=== PATIENT | female | born 1990 | race Caucasian/White ===

== ENCOUNTER 2019-06-03 06:41 | Inpatient (IN) | payer BC ==
[~2019-06-03 06:41] MED LIST: Bupivacaine 0.25% 10 ML SDV ONE
[2019-06-03] MEDS ORDERED: Nalbuphine 10 MG/1 ML Vial IVPUSH PRN (07:23)
[2019-06-03] MEDS ORDERED: Ondansetron 4 MG/2 ML SDV IVPUSH PRN (07:23)
[2019-06-03] MEDS ORDERED: Sodium Chloride 0.9% 10 ML Syringe FLUSH PRN (07:23)
[2019-06-03] MEDS ORDERED: Oxytocin/Lactated Ringers 10 UNIT/1,000 ML BAG IV SCH ×3 (07:30→23:21)
[2019-06-03] MEDS: Lactated Ringers 1,000 ML IV SCH ×5 (07:51→20:29)
--- NOTE | 2019-06-03 08:03 | PCM.LDHP ---
L&D History of Present Illness - General Date of Service: 06/03/19 Admit Problem/Dx: Patient Status Order with Admit Dx/Problem 06/03/19 07:24 Patient Status [ADT] Routine Admission Diagnosis/Problem Admission Diagnosis/Problem Source of Information: Patient - History of Present Illness Introduction:: Jocelyn Winkler is a 29-year-old 002 at 39 weeks 1 days by 7 week ultrasound (ADE 06/09/2019) who presents for elective induction of labor. She denies any contractions or cramping since her last appointment. Denies any leaking of fluid or vaginal bleeding. Reports good movement. Reports that she has had continued headaches but they have been able to be controlled with medication. Present Illness Comments:: Jocelyn Winkler is a 29-year-old 002 at 39 weeks 1 days by 7 week ultrasound (ADE 06/09/2019) who presents for elective induction of labor. She has had an overall uncomplicated and has had routine care with myself starting at 7 weeks gestational age. She had the TDaP vaccine on . She got the flu vaccine on 05/27/2019. Her is complicated by: * Rh- status in and received RhoGAM at 28 weeks gestational age * Back pain in * Family history of congenital heart disease and has been seen by Dr. Woodruff and had normal echocardiogram * Headaches in * Obesity labs Blood type: O- Antibody screen: Negative First trimester hematocrit/hemoglobin: 39.5%/13.2 on 10/24/2018 Platelets: 266 on 10/16/2018 Urine culture: Mixed sergio suggestive of contamination Rubella status: Immune Hepatitis B surface antigen: Negative RPR: Negative HIV: Negative Gonorrhea: Negative Chlamydia: Negative Anatomy ultrasound: Normal anatomy ultrasound with small echogenic focus in the heart, posterior placenta, EFW at 69th percentile One hour glucose tolerance test: 110 Second trimester hematocrit/hemoglobin: 36.8%/12.1 on 03/18/2019 Platelets: 243 on 03/18/2019 GBS status: Negative Genetic testing: Negative NIP screening - Related Data Allergies/Adverse Reactions: Allergies Allergy/AdvReac Type Severity Reaction Status Date / Time latex Allergy Rash Verified 04/30/19 17:47 pineapple Allergy Rash Verified 03/20/15 01:32 shrimp Allergy Rash Verified 03/20/15 01:32 Home Medications: Home Meds PNV95/Ferrous Fumarate/FA [ Multivitamins] 1 tab PO DAILY 10/03/14 [ History] Past Medical History Genitourinary History: Reports: UTI, 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 - Past Surgical History HEENT Surgical History: Reports: Myringotomy w Tube(s) Social & Family History - Tobacco Use Smoking Status *Q: Never Smoker Tobacco Use Within Last Twelve Months: No - Tobacco Core Measures Tobacco Use/Smoking Within Last 30 Days: No Smokeless Tobacco Use in Last 30 Days: No - Alcohol Use Alcohol Use History: No - Recreational Drug Use Recreational Drug Use: No Drug Use in Last 12 Months: No - Living Situation & Occupation Living situation: Reports: , with Significant Other Occupation: Employed H&P Review of Systems - Review of Systems: Review Of Systems: See Below General: Denies: Fever, Chills HEENT: Reports: Headaches. Denies: Rhinitis, Post Nasal Drip, Sinus Congestion , Sore Throat, Visual Changes Pulmonary: Denies: Shortness of Breath, Wheezing, Cough Cardiovascular: Denies: Chest Pain, Palpitations, Dyspnea on Exertion, Orthopnea Gastrointestinal: Denies: Abdominal Pain, Constipation, Diarrhea, Nausea, Vomiting Genitourinary: Denies: Dysuria, Frequency, Burning, Pain, Urgency Musculoskeletal: Reports: Back Pain Skin: Denies: Rash, Lesions Psychiatric: Denies: Depression, Anxiety Neurological: Reports: Headache Hematologic/Lymphatic: Denies: Anemia, Easy Bleeding, Easy Bruising L&D Exam - Exam Exam: See Below - OB Specific Contraction Intensity: Irritability Movement: Active Heart Tones: Present Heart Tones per Min: 125 (+15 x 15 accelerations, no decelerations) Heart Rate (FHR) Variability: Moderate (6-25 bmp) Presentation: Vertex Estimated Weight: 7-7.5 pounds by Alin maneuver - Che Score Che Score Cervix Position: Midposition Che Score Effacement: 31-50% (50%) Che Score Dilation: 1-2 cm (1 cm) Che Score 's Station: -3 - Exam General: Alert, Oriented HEENT: Conjunctiva Clear, EOMI Neck: Supple, Trachea Midline Lungs: Clear to Auscultation, Normal Respiratory Effort Cardiovascular: Regular Rate, Regular Rhythm GI/Abdominal Exam: Soft, Non-Tender, No Distention, Other (gravid). No: Guarding, Rigid, Rebound Genitourinary: Normal external exam Skin: Warm, Dry, Intact Psychiatric: Alert, Normal Affect, Normal Mood - Problem List (1) 39 weeks gestation of SNOMED Code(s): 97516164 ICD Code: Z3A.39 - 39 WEEKS GESTATION OF Status: Acute Current Visit: Yes (2) Rh negative state in antepartum period SNOMED Code(s): 055710678 ICD Code: O26.899 - OTH RELATED CONDITIONS, UNSPECIFIED TRIMESTER; Z67.91 - UNSPECIFIED BLOOD TYPE, RH NEGATIVE Status: Acute Current Visit: Yes (3) PCOS (polycystic ovarian syndrome) SNOMED Code(s): 247677409 ICD Code: E28.2 - POLYCYSTIC OVARIAN SYNDROME Status: Acute Current Visit : Yes Problem List Initiated/Reviewed/Updated: Yes Orders Last 24hrs: Active Orders 24 hr Category Date Time Status Patient Status [ADT] Routine ADT 06/03/19 07:24 Active Activity as Tolerated [RC] PFP Care 06/03/19 07:24 Active Communication Order [RC] ASDIRECTED Care 06/03/19 07:24 Active Heart Tones [RC] ASDIRECTED Care 06/03/19 07:24 Active Non Stress Test [RC] PER UNIT ROUTINE Care 06/03/19 07:24 Active Notify Provider [RC] PFP Care 06/03/19 07:24 Active Notify Provider [RC] PRN Care 06/03/19 07:24 Active Peripheral IV Care [RC] . DIRECTED Care 06/03/19 07:24 Active Vital Signs [RC] PER UNIT ROUTINE Care 06/03/19 07:24 Active Regular Diet [DIET] Diet 06/03/19 Breakfast Active CBC WITH AUTO DIFF [HEME] Stat Lab 06/03/19 07:23 Ordered RAPID PLASMA REAGIN,RPR [CHEM] Routine Lab 06/03/19 07:24 Ordered Lactated Ringers [Ringers, Lactated] 1,000 ml Med 06/03/19 07:30 Active IV ASDIRECTED Nalbuphine [Nubain] Med 06/03/19 07:23 Active 10 mg IVPUSH Q2H PRN Ondansetron [Zofran] Med 06/03/19 07:23 Active 4 mg IVPUSH Q4H PRN Oxytocin/Lactated Ringers [Pitocin in LR 10 Units/1,000 Med 06/03/19 07:30 Active ML] 10 unit in 1,000 ml IV .CONTINUOUS Oxytocin/Lactated Ringers [Pitocin in LR 10 Units/1,000 Med 06/03/19 07:30 Active ML] 10 unit in 1,000 ml IV TITRATE Sodium Chloride 0.9% [Saline Flush] Med 06/03/19 07:23 Active 10 ml FLUSH ASDIRECTED PRN Electronic Heart Tones Ext w TOCO [WOMSER] Oth 06/03/19 07:24 Ordered Routine Electronic Heart Tones Internal [WOMSER] Per Unit Oth 06/03/19 07:24 Ordered Routine Peripheral IV Insertion Adult [OM.PC] Routine Oth 06/03/19 07:24 Ordered Resuscitation Status Routine Resus Stat 06/03/19 07:23 Ordered Medication Orders Lactated Ringer's (Ringers, Lactated) 1,000 mls @ 100 mls/hr IV ASDIRECTED SHERYL Last Admin: 06/03/19 07:51 Dose: 100 mls/hr Oxytocin/Lactated Ringer's (Pitocin In Lr 10 Units/1,000 Ml) 10 unit in 1,000 mls @ 100 mls/hr IV .CONTINUOUS SHERYL Oxytocin/Lactated Ringer's (Pitocin In Lr 10 Units/1,000 Ml) 10 unit in 1,000 mls @ 12 mls/hr IV TITRATE SHERYL; Protocol Last Admin: 06/03/19 07:54 Dose: 2 munits/min, 12 mls/hr Nalbuphine HCl (Nubain) 10 mg IVPUSH Q2H PRN PRN Reason: Pain Ondansetron HCl (Zofran) 4 mg IVPUSH Q4H PRN PRN Reason: Nausea/Vomiting Sodium Chloride (Saline Flush) 10 ml FLUSH ASDIRECTED PRN PRN Reason: Keep Vein Open Assessment/Plan Comment:: Refer to observation for elective induction of labor Start Pitocin for induction of labor Continuous monitoring Place IV and have Lactated Ringer's at 125 ml/hr May have small amounts of regular diet Activity as tolerated May have epidural as desired Plans to breast-feed after delivery Anticipate vaginal delivery unless otherwise indicated Yeyo Montano M.D. 8:11 AM 06/03/2019
[2019-06-03] MEDS ORDERED: ePHEDrine 50 MG/ML SDV IVPUSH PRN (10:26)
[2019-06-03] MEDS ORDERED: fentaNYL 100 MCG/2 ML SDV EPIDUR PRN (10:26)
[2019-06-03] MEDS ORDERED: fentaNYL/Bupivacaine in NS PF 2 MCG-0.125% 250 ML Premix EPIDUR PRN (10:26)
[2019-06-03] MEDS ORDERED: diphenhydrAMINE 50 MG/ML SDV IVPUSH PRN (10:26)
--- NOTE | 2019-06-03 11:33 | PCM.PNLD ---
Labor Progress Note - VS & Meds Vital Signs: Last Vital Signs Temp 36.3 C 06/03/19 07:24 Pulse 106 H 06/03/19 07:24 Resp 18 06/03/19 07:24 BP 132/87 06/03/19 07:24 Pulse Ox 97 06/03/19 07:24 Active Medications: Current Medications Diphenhydramine HCl (Benadryl) 25 mg IVPUSH Q6H PRN PRN Reason: pruritis Ephedrine Sulfate (Ephedrine Sulfate) 5 mg IVPUSH ASDIRECTED PRN PRN Reason: Hypotension Fentanyl (Sublimaze) 100 mcg EPIDUR Q3H PRN PRN Reason: Pain Fentanyl/Bupivacaine HCl (Fentanyl/Bupivacaine/Ns 2 Mcg-0.125% 250 Ml) 2 mcg EPIDUR CONTINUOUS PRN PRN Reason: Pain Lactated Ringer's (Ringers, Lactated) 1,000 mls @ 100 mls/hr IV ASDIRECTED SHERYL Last Admin: 06/03/19 07:51 Dose: 100 mls/hr Oxytocin/Lactated Ringer's (Pitocin In Lr 10 Units/1,000 Ml) 10 unit in 1,000 mls @ 100 mls/hr IV .CONTINUOUS SHERYL Oxytocin/Lactated Ringer's (Pitocin In Lr 10 Units/1,000 Ml) 10 unit in 1,000 mls @ 12 mls/hr IV TITRATE SHERYL; Protocol Last Titration: 06/03/19 11:04 Dose: 12 munits/min, 72 mls/hr Nalbuphine HCl (Nubain) 10 mg IVPUSH Q2H PRN PRN Reason: Pain Ondansetron HCl (Zofran) 4 mg IVPUSH Q4H PRN PRN Reason: Nausea/Vomiting Sodium Chloride (Saline Flush) 10 ml FLUSH ASDIRECTED PRN PRN Reason: Keep Vein Open - Uterine Contractions Uterine Monitoring Mode: External [place] Contraction Frequency (min): 2-3 Contraction Duration (sec): 60-75 Contraction Intensity: Moderate to Strong Uterine Resting Tone: Soft - Monitoring Monitor Mode: Doppler/Auscultation Heart Rate (FHR) Baseline: 130 Heart Rate (FHR) Variability: Moderate (6-25 bmp) Accelerations: Present, 15x15 Decelerations: Late, Intermittent (<50% x 20 min) Strip Review: Category II - Vaginal Exam Dilation (cm): 2 Effacement (Percent): 70 Station: -2 Cervical Position: Anterior Sterile Vaginal Exam Performed By: Yeyo Montano Vaginal Exam Comment: Artificial rupture membranes with [place] performed without difficulty with return of clear fluid. Mother and infant tolerated procedure without difficulty. - Labor Progress (Free Text) Labor Progress: Patient with good progress since induction this morning with Pitocin. Continue Pitocin for induction of labor Continue to increase Pitocin as tolerated by mother and infant Continue monitoring Epidural as desired per patient Anticipate vaginal delivery unless otherwise indicated. Yeyo Montano M.D. 11:33 AM 06/03/2019
--- NOTE | 2019-06-03 15:24 | PCM.PREANE ---
Preanesthetic Assessment - Anesthesia/Transfusion/Family Hx Anesthesia History: Prior Anesthesia Without Reaction Family History of Anesthesia Reaction: No Transfusion History: No Prior Transfusion(s) Type of Transfusion Reactions: Reports: Unknown - Review of Systems General: No Symptoms Pulmonary: No Symptoms Cardiovascular: No Symptoms Gastrointestinal: Other ([place] Burn) Neurological: Headache (Chronic Headache. ) Other: Reports: None (Obesity) - Physical Assessment Vital Signs: Last Vital Signs Temp 36.3 C 06/03/19 07:24 Pulse 106 H 06/03/19 07:24 Resp 18 06/03/19 07:24 BP 132/87 06/03/19 07:24 Pulse Ox 97 06/03/19 07:24 Height: 1.6 m Weight: 101.423 kg ASA Class: 2 Mental Status: Alert & Oriented x3 Airway Class: Mallampati = 2 Dentition: Reports: Normal Dentition Thyro-Mental Finger Breadths: 3 Mouth Opening Finger Breadths: 3 ROM/Head Extension: Full Lungs: Clear to Auscultation, Normal Respiratory Effort - Lab Values: Laboratory Last Values WBC 9.12 K/mm3 (3.98-10.04) 06/03/19 07:55 RBC 3.99 M/mm3 (3.98-5.22) 06/03/19 07:55 Hgb 11.5 gm/dl (11.2-15.7) 06/03/19 07:55 Hct 33.5 % (34.1-44.9) L 06/03/19 07:55 MCV 84.0 fl (79.4-94.8) D 06/03/19 07:55 MCH 28.8 pg (25.6-32.2) 06/03/19 07:55 MCHC 34.3 g/dl (32.2-35.5) 06/03/19 07:55 RDW Std Deviation 44.4 fL (36.4-46.3) 06/03/19 07:55 Plt Count 230 K/mm3 (182-369) 06/03/19 07:55 MPV 10.8 fl (9.4-12.3) 06/03/19 07:55 Neut % (Auto) 65.1 % (34.0-71.1) 06/03/19 07:55 Lymph % (Auto) 23.4 % (19.3-51.7) 06/03/19 07:55 [place] % (Auto) 9.0 % (4.7-12.5) 06/03/19 07:55 Eos % (Auto) 2.2 (0.7-5.8) 06/03/19 07:55 Baso % (Auto) 0.3 % (0.1-1.2) 06/03/19 07:55 Neut # (Auto) 5.94 K/mm3 (1.56-6.13) 06/03/19 07:55 Lymph # (Auto) 2.13 K/mm3 (1.18-3.74) 06/03/19 07:55 [place] # (Auto) 0.82 K/mm3 (0.24-0.36) H 06/03/19 07:55 Eos # (Auto) 0.20 K/mm3 (0.04-0.36) 06/03/19 07:55 Baso # (Auto) 0.03 K/mm3 (0.01-0.08) 06/03/19 07:55 - Allergies Allergies/Adverse Reactions: Allergies Allergy/AdvReac Type Severity Reaction Status Date / Time latex Allergy Rash Verified 04/30/19 17:47 pineapple Allergy Rash Verified 03/20/15 01:32 shrimp Allergy Rash Verified 03/20/15 01:32 - Acknowledgements Anesthesia Type Planned: Epidural Pt an Appropriate Candidate for the Planned Anesthesia: Yes Alternatives and Risks of Anesthesia Discussed w Pt/Guardian: Yes Pt/Guardian Understands and Agrees with Anesthesia Plan: Yes PreAnesthesia Questionnaire HEENT History: Reports: Otitis Media Genitourinary History: Reports: UTI, 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 - Past Surgical History HEENT Surgical History: Reports: Myringotomy w Tube(s) - SUBSTANCE USE Smoking Status *Q: Never Smoker Tobacco Use Within Last Twelve Months: No Second Hand Smoke Exposure: No Recreational Drug Use History: No - HOME MEDS Home Medications: Home Meds PNV95/Ferrous Fumarate/FA [ Multivitamins] 1 tab PO DAILY 10/03/14 [ History] - CURRENT (IN HOUSE) MEDS Current Meds: Current Medications Diphenhydramine HCl (Benadryl) 25 mg IVPUSH Q6H PRN PRN Reason: pruritis Ephedrine Sulfate (Ephedrine Sulfate) 5 mg IVPUSH ASDIRECTED PRN PRN Reason: Hypotension Fentanyl (Sublimaze) 100 mcg EPIDUR Q3H PRN PRN Reason: Pain Last Admin: 06/03/19 13:20 Dose: 100 mcg Fentanyl/Bupivacaine HCl (Fentanyl/Bupivacaine/Ns 2 Mcg-0.125% 250 Ml) 2 mcg EPIDUR CONTINUOUS PRN PRN Reason: Pain Last Admin: 06/03/19 13:19 Dose: 2 mcg Lactated Ringer's (Ringers, Lactated) 1,000 mls @ 100 mls/hr IV ASDIRECTED SHERYL Last Admin: 06/03/19 14:48 Dose: 100 mls/hr Oxytocin/Lactated Ringer's (Pitocin In Lr 10 Units/1,000 Ml) 10 unit in 1,000 mls @ 100 mls/hr IV .CONTINUOUS SHERYL Oxytocin/Lactated Ringer's (Pitocin In Lr 10 Units/1,000 Ml) 10 unit in 1,000 mls @ 12 mls/hr IV TITRATE SHERYL; Protocol Last Titration: 06/03/19 14:48 Dose: 8 munits/min, 48 mls/hr Nalbuphine HCl (Nubain) 10 mg IVPUSH Q2H PRN PRN Reason: Pain Ondansetron HCl (Zofran) 4 mg IVPUSH Q4H PRN PRN Reason: Nausea/Vomiting Sodium Chloride (Saline Flush) 10 ml FLUSH ASDIRECTED PRN PRN Reason: Keep Vein Open
--- NOTE | 2019-06-03 23:01 | PCM.DEL ---
L & D Note - General Info Date of Service: 06/03/19 Mother's Due Date: 06/09/19 - Delivery Note Labor: Augmented by ARM, Augmented by Oxytocin, Induced by Oxytocin Delivery Outcome: Livebirth Infant Delivery Method: Spontaneous Vaginal Delivery-Single Presentation: Direct occiput posterior Nuchal Cord: None Anesthesia Type: Epidural Episiotomy Type: None Laceration: 1st Degree, Perineal (midline perineal, repaired with 3- Vicryl) Suture type: Vicryl Suture size: 3-0 Placenta: Intact, Spontaneous Cord: 3 Vessels Estimated Blood Loss: 200 Resuscitation Needed: No : Bulb Syringe, Stimulated, Warmed, Century Used Score 1 min: 8 Score 5 min: 9 Second Stage Interventions: Reports: Pushing Effectively, Pushing, Stirrups/Leg Supports Delivery Comments (Free Text/Narrative):: Stage I: Jocelyn Winkler was admitted for elective induction of labor. On admission her cervix was dilated to 1 cm. She was GBS negative. She was started on Pitocin for augmentation of labor. She had artificial rupture membranes with clear fluid. She was given an epidural for anesthesia. She progressed to complete and pushing. Stage II: On 06/03/2019 she had a normal vaginal delivery of a live female infant at 22:13. Apgars of 8 & 9. Weight of 2890 g (6 lbs 5.9 oz). Length of 19.5 inches. There was no nuchal cord. was delivered in direct OP position. The cord was doubly clamped and cut by father of the . was placed on mother's abdomen. Stage III: She had a spontaneous delivery of an intact placenta in Adriana presentation. Three vessel cord. She was given pitocin and fundal massage. She had a first-degree midline perineal laceration that was repaired with 3-0 Vicryl.. Mom and baby were stable to recovery. EBL of 200 mL. Yeyo Montano MD 10:56 PM 06/03/2019 - General Info Date of Service: 06/03/19 - Patient Data Vitals - Most Recent: Last Vital Signs Temp 36.3 C 06/03/19 07:24 Pulse 106 H 06/03/19 07:24 Resp 18 06/03/19 07:24 BP 132/87 06/03/19 07:24 Pulse Ox 97 06/03/19 07:24 Weight - Most Recent: 101.423 kg I&O - Last 24 Hours: Intake & Output 06/03/19 06/03/19 06/03/19 06:59 14:59 22:59 Intake Total 240 Balance 240 Lab Results Last 24 Hours: Laboratory Results - last 24 hr 06/03/19 06/03/19 Range/Units 07:55 07:55 WBC 9.12 (3.98-10.04) K/mm3 RBC 3.99 (3.98-5.22) M/mm3 Hgb 11.5 (11.2-15.7) gm/dl Hct 33.5 L (34.1-44.9) % MCV 84.0 D (79.4-94.8) fl MCH 28.8 (25.6-32.2) pg MCHC 34.3 (32.2-35.5) g/dl RDW Std Deviation 44.4 (36.4-46.3) fL Plt Count 230 (182-369) K/mm3 MPV 10.8 (9.4-12.3) fl Neut % (Auto) 65.1 (34.0-71.1) % Lymph % (Auto) 23.4 (19.3-51.7) % [place] % (Auto) 9.0 (4.7-12.5) % Eos % (Auto) 2.2 (0.7-5.8) Baso % (Auto) 0.3 (0.1-1.2) % Neut # (Auto) 5.94 (1.56-6.13) K/mm3 Lymph # (Auto) 2.13 (1.18-3.74) K/mm3 [place] # (Auto) 0.82 H (0.24-0.36) K/mm3 Eos # (Auto) 0.20 (0.04-0.36) K/mm3 Baso # (Auto) 0.03 (0.01-0.08) K/mm3 RPR Non-reactive (NONREACTIVE) Med Orders - Current: Current Medications Diphenhydramine HCl (Benadryl) 25 mg IVPUSH Q6H PRN PRN Reason: pruritis Last Admin: 06/03/19 20:29 Dose: 25 mg Ephedrine Sulfate (Ephedrine Sulfate) 5 mg IVPUSH ASDIRECTED PRN PRN Reason: Hypotension Fentanyl (Sublimaze) 100 mcg EPIDUR Q3H PRN PRN Reason: Pain Last Admin: 06/03/19 13:20 Dose: 100 mcg Fentanyl/Bupivacaine HCl (Fentanyl/Bupivacaine/Ns 2 Mcg-0.125% 250 Ml) 2 mcg EPIDUR CONTINUOUS PRN PRN Reason: Pain Last Admin: 06/03/19 13:19 Dose: 2 mcg Lactated Ringer's (Ringers, Lactated) 1,000 mls @ 100 mls/hr IV ASDIRECTED SHERYL Last Admin: 06/03/19 20:29 Dose: 100 mls/hr Oxytocin/Lactated Ringer's (Pitocin In Lr 10 Units/1,000 Ml) 10 unit in 1,000 mls @ 100 mls/hr IV .CONTINUOUS SHERYL Last Admin: 06/03/19 22:57 Dose: 100 mls/hr Oxytocin/Lactated Ringer's (Pitocin In Lr 10 Units/1,000 Ml) 10 unit in 1,000 mls @ 12 mls/hr IV TITRATE SHERYL; Protocol Last Titration: 06/03/19 22:15 Dose: 500 mls/hr Nalbuphine HCl (Nubain) 10 mg IVPUSH Q2H PRN PRN Reason: Pain Ondansetron HCl (Zofran) 4 mg IVPUSH Q4H PRN PRN Reason: Nausea/Vomiting Last Admin: 06/03/19 16:43 Dose: 4 mg Sodium Chloride (Saline Flush) 10 ml FLUSH ASDIRECTED PRN PRN Reason: Keep Vein Open - Problem List & Annotations (1) 39 weeks gestation of SNOMED Code(s): 29918484 Code(s): Z3A.39 - 39 WEEKS GESTATION OF Status: Acute Current Visit: Yes (2) Rh negative state in antepartum period SNOMED Code(s): 070948173 Code(s): O26.899 - OTH RELATED CONDITIONS, UNSPECIFIED TRIMESTER; Z67.91 - UNSPECIFIED BLOOD TYPE, RH NEGATIVE Status: Acute Current Visit: Yes (3) PCOS (polycystic ovarian syndrome) SNOMED Code(s): 392204618 Code(s): E28.2 - POLYCYSTIC OVARIAN SYNDROME Status: Acute Current Visit : Yes (4) Vaginal delivery SNOMED Code(s): 273445360 Code(s): O80 - ENCOUNTER FOR FULL-TERM UNCOMPLICATED DELIVERY Status: Acute Current Visit: Yes (5) First degree perineal laceration during delivery SNOMED Code(s): 006836309 Code(s): O70.0 - FIRST DEGREE PERINEAL LACERATION DURING DELIVERY Status: Acute Current Visit: Yes - Problem List Review Problem List Initiated/Reviewed/Updated: Yes - My Orders Last 24 Hours: My Active Orders 06/03/19 07:23 Nalbuphine [Nubain] 10 mg IVPUSH Q2H PRN Ondansetron [Zofran] 4 mg IVPUSH Q4H PRN Sodium Chloride 0.9% [Saline Flush] 10 ml FLUSH ASDIRECTED PRN Resuscitation Status Routine 06/03/19 07:24 Patient Status [ADT] Routine Activity as Tolerated [RC] PFP Communication Order [RC] ASDIRECTED Heart Tones [RC] ASDIRECTED Non Stress Test [RC] PER UNIT ROUTINE Notify Provider [RC] PFP Notify Provider [RC] PRN Peripheral IV Care [RC] . DIRECTED Vital Signs [RC] 03,09,15,21 Electronic Heart Tones Ext w TOCO [WOMSER] Routine Electronic Heart Tones Internal [WOMSER] Per Unit Routine Peripheral IV Insertion Adult [OM.PC] Routine 06/03/19 07:30 Lactated Ringers [Ringers, Lactated] 1,000 ml IV ASDIRECTED Oxytocin/Lactated Ringers [Pitocin in LR 10 Units/1,000 ML] 10 unit in 1,000 ml IV .CONTINUOUS Oxytocin/Lactated Ringers [Pitocin in LR 10 Units/1,000 ML] 10 unit in 1,000 ml IV TITRATE 06/03/19 22:45 Patient Status Manage Transfer [TRANSFER] Routine 06/03/19 Breakfast Regular Diet [DIET] - Plan Plan:: Admit to inpatient following normal spontaneous vaginal delivery Continue Pitocin per unit protocol following delivery of placenta and lactated Ringer's until tolerating regular diet Regular diet Vitals per unit routine Ibuprofen and Tylenol for pain control Assist with breast-feeding as needed Continue to monitor lochia We will follow up on blood type as patient has O- blood type. If is Rh+ patient should be given RhoGAM prior to discharge. Anticipate discharge home on day #2 Yeyo Montano MD 10:56 PM 06/03/2019
[2019-06-03] MEDS ORDERED: Docusate Sodium 100 MG Cap PO PRN (23:21)
[2019-06-03] MEDS ORDERED: Benzocaine/Menthol 20%-0.5% Spray 56 GM Canister TOP PRN (23:21)
[2019-06-03] MEDS ORDERED: Magnesium Hydroxide 400 MG/5 ML Susp 30 ML Cup PO PRN (23:21)
[2019-06-03] MEDS ORDERED: Witch Hazel Medicated Pads 40/Jar TOP PRN (23:21)
[2019-06-03] MEDS ORDERED: Famotidine 20 MG Tab PO PRN (23:21)
[2019-06-03] MEDS ORDERED: Hydrocortisone Acetate 25 MG Supp RECTAL PRN (23:21)
[2019-06-03] MEDS: Ibuprofen 600 MG Tab PO PRN (23:53)
[2019-06-04] MEDS: Ibuprofen 600 MG Tab PO PRN ×3 (06:38→19:45)
--- NOTE | 2019-06-04 08:02 | PCM48HPAN ---
Post Anesthesia Note - EVALUATION WITHIN 48HRS OF ANESTHETIC Vital Signs in Normal Range: Yes Patient Participated in Evaluation: Yes Respiratory Function Stable: Yes Airway Patent: Yes Cardiovascular Function Stable: Yes Hydration Status Stable: Yes Pain Control Satisfactory: Yes Nausea and Vomiting Control Satisfactory: Yes Mental Status Recovered: Yes Vital Signs: Last Vital Signs Temp 97.2 F 06/04/19 03:53 Pulse 92 06/04/19 03:53 Resp 16 06/04/19 03:53 BP 100/53 L 06/04/19 03:53 Pulse Ox 96 06/04/19 03:53
[2019-06-04] MEDS ORDERED: Prenatal Multivitamin with Calcium/Folic Acid/Iron Tab PO SCH (09:00)
--- NOTE | 2019-06-04 09:37 | PCM.SN ---
- Free Text/Narrative Note: Post Progress Note PPD # 1 Subjective: Doing well overall. Ambulating without difficulty. Lochia minimal. Voiding without difficulty. Tolerating regular diet without nausea or vomiting. Pain controlled with oral medications. Breast-feeding with minimal difficulty. Objective: Vitals: Vital Signs - 24 hr 06/04/19 06/04/19 03:53 08:41 Temperature 36.2 C Pulse, 92 92 Peripheral Respiratory 16 14 Rate Blood Pressure 100/53 L 133/71 O2 Sat by Pulse 96 98 Oximetry Physical Exam General: Alert and oriented, no acute distress Lungs: Clear to auscultation bilaterally Heart: Regular rate and rhythm Abdomen: Soft, minimal appropriate tenderness, non-distended, fundus midline, nontender, and at the umbilicus Extremities: Trace edema in bilateral lower extremities to ankles Laboratory Tests 06/03/19 06/03/19 06/04/19 Range/Units 07:55 07:55 07:00 WBC 9.12 (3.98-10.04) K/mm3 RBC 3.99 (3.98-5.22) M/mm3 Hgb 11.5 (11.2-15.7) gm/dl Hct 33.5 L (34.1-44.9) % MCV 84.0 D (79.4-94.8) fl MCH 28.8 (25.6-32.2) pg MCHC 34.3 (32.2-35.5) g/dl RDW Std Deviation 44.4 (36.4-46.3) fL Plt Count 230 (182-369) K/mm3 MPV 10.8 (9.4-12.3) fl Neut % (Auto) 65.1 (34.0-71.1) % Lymph % (Auto) 23.4 (19.3-51.7) % [place] % (Auto) 9.0 (4.7-12.5) % Eos % (Auto) 2.2 (0.7-5.8) Baso % (Auto) 0.3 (0.1-1.2) % Neut # (Auto) 5.94 (1.56-6.13) K/mm3 Lymph # (Auto) 2.13 (1.18-3.74) K/mm3 [place] # (Auto) 0.82 H (0.24-0.36) K/mm3 Eos # (Auto) 0.20 (0.04-0.36) K/mm3 Baso # (Auto) 0.03 (0.01-0.08) K/mm3 RPR Non-reactive (NONREACTIVE) Blood Type O NEGATIVE Gel Antibody Screen Positive Screen 1 ros/5 flds - neg RhIG Candidate? Yes Rhogam Indicated Yes, baby rh pos H ASSESSMENT: 29-year-old female s/p normal vaginal delivery PPD #1, complicated by Rh- status in PLAN: Doing well Breast-feeding with minimal difficulty. Assist as needed Lochia minimal. Continue to monitor for appropriate lochia. Continue routine care Patient with O- blood type and infant with A+ blood type. Patient should receive RhoGAM prior to discharge. Anticipate discharge home tomorrow due to late timing of delivery last evening Yeyo Montano MD 9:35 AM 06/04/2019
[2019-06-04] MEDS: Acetaminophen 325 MG Tab PO PRN ×2 (16:39→23:35)
[2019-06-05] MEDS: Ibuprofen 600 MG Tab PO PRN (05:04)
[2019-06-05 08:32] VITALS: BP 124/79; PULSE 75
--- NOTE | 2019-06-05 09:27 | PCM.SN ---
- Free Text/Narrative Note: Post Progress Note PPD # 2 Subjective: Doing well overall. Ambulating without difficulty. Lochia minimal. Voiding without difficulty. Tolerating regular diet without nausea or vomiting. Reports that she is having some muscle soreness in her right lower abdomen. She has been using a heating pad and that has helped with this pain. Pain controlled with oral medications. Breast-feeding with minimal difficulty. Objective: Vitals: Vital Signs - 24 hr 06/04/19 06/04/19 06/04/19 09:48 09:52 09:53 Temperature 36.5 C 36.5 C 36.6 C Pulse, 78 Peripheral Pulse, 81 86 Peripheral [ Pulse Oximetry] Respiratory 98 H 14 Rate Blood Pressure 121/61 Blood Pressure 121/61 117/61 [Upper Arm] O2 Sat by Pulse 98 98 Oximetry 06/04/19 06/04/19 06/04/19 09:54 14:56 20:16 Temperature 36.6 C Pulse, 89 77 65 Peripheral Pulse, Peripheral [ Pulse Oximetry] Respiratory 14 14 14 Rate Blood Pressure 117/61 130/83 108/64 Blood Pressure [Upper Arm] O2 Sat by Pulse 98 98 99 Oximetry 06/05/19 06/05/19 05:06 08:28 Temperature 36.7 C Pulse, 82 75 Peripheral Pulse, Peripheral [ Pulse Oximetry] Respiratory 16 14 Rate Blood Pressure 133/83 124/79 Blood Pressure [Upper Arm] O2 Sat by Pulse 98 98 Oximetry Physical Exam General: Alert and oriented, no acute distress Lungs: Clear to auscultation bilaterally Heart: Regular rate and rhythm Abdomen: Soft, minimal appropriate tenderness, non-distended, fundus midline, nontender, and 1 fingerbreadth below the umbilicus Extremities: Trace edema in bilateral lower extremities to ankles that is overall unchanged Laboratory Tests 06/03/19 06/03/19 06/04/19 Range/Units 07:55 07:55 07:00 WBC 9.12 (3.98-10.04) K/mm3 RBC 3.99 (3.98-5.22) M/mm3 Hgb 11.5 (11.2-15.7) gm/dl Hct 33.5 L (34.1-44.9) % MCV 84.0 D (79.4-94.8) fl MCH 28.8 (25.6-32.2) pg MCHC 34.3 (32.2-35.5) g/dl RDW Std Deviation 44.4 (36.4-46.3) fL Plt Count 230 (182-369) K/mm3 MPV 10.8 (9.4-12.3) fl Neut % (Auto) 65.1 (34.0-71.1) % Lymph % (Auto) 23.4 (19.3-51.7) % [place] % (Auto) 9.0 (4.7-12.5) % Eos % (Auto) 2.2 (0.7-5.8) Baso % (Auto) 0.3 (0.1-1.2) % Neut # (Auto) 5.94 (1.56-6.13) K/mm3 Lymph # (Auto) 2.13 (1.18-3.74) K/mm3 [place] # (Auto) 0.82 H (0.24-0.36) K/mm3 Eos # (Auto) 0.20 (0.04-0.36) K/mm3 Baso # (Auto) 0.03 (0.01-0.08) K/mm3 RPR Non-reactive (NONREACTIVE) Blood Type O NEGATIVE Gel Antibody Screen Positive Screen 1 ros/5 flds - neg RhIG Candidate? Yes Rhogam Indicated Yes, baby rh pos H ASSESSMENT: 29-year-old female s/p normal vaginal delivery PPD #2, complicated by Rh- status in PLAN: Doing well Breast-feeding with minimal difficulty. Assist as needed Lochia minimal. Continue to monitor for appropriate lochia. Continue routine care Patient with O- blood type and with A+ blood type. Patient given RhoGAM on 06/04/2019 prior to discharge. Discharge home today Yeyo Montano MD 9:24 AM 06/05/2019
--- NOTE | 2019-06-05 09:30 | PCM.DCSUM1 ---
Discharge Summary - Hospital Course Free Text/Narrative:: - Delivery Note Labor: Augmented by ARM, Augmented by Oxytocin, Induced by Oxytocin Delivery Outcome: Livebirth Infant Delivery Method: Spontaneous Vaginal Delivery-Single Presentation: Direct occiput posterior Nuchal Cord: None Anesthesia Type: Epidural Episiotomy Type: None Laceration: 1st Degree, Perineal (midline perineal, repaired with 3- Vicryl) Suture type: Vicryl Suture size: 3-0 Placenta: Intact, Spontaneous Cord: 3 Vessels Estimated Blood Loss: 200 Resuscitation Needed: No : Bulb Syringe, Stimulated, Warmed, [place] Used Score 1 min: 8 Score 5 min: 9 Second Stage Interventions: Reports: Pushing Effectively, Pushing, Stirrups/Leg Supports Delivery Comments (Free Text/Narrative):: Stage I: Jocelyn Winkler was admitted for elective induction of labor. On admission her cervix was dilated to 1 cm. She was GBS negative. She was started on Pitocin for augmentation of labor. She had artificial rupture membranes with clear fluid. She was given an epidural for anesthesia. She progressed to complete and pushing. Stage II: On 06/03/2019 she had a normal vaginal delivery of a live female infant at 22:13. Apgars of 8 & 9. Weight of 2890 g (6 lbs 5.9 oz). Length of 19.5 inches. There was no nuchal cord. Infant was delivered in direct OP position. The cord was doubly clamped and cut by father of the . Infant was placed on mother's abdomen. Stage III: She had a spontaneous delivery of an intact placenta in Adriana presentation. Three vessel cord. She was given pitocin and fundal massage. She had a first-degree midline perineal laceration that was repaired with 3-0 Vicryl.. Mom and baby were stable to recovery. EBL of 200 mL. HPI Initial Comments: - Delivery Note Labor: Augmented by ARM, Augmented by Oxytocin, Induced by Oxytocin Delivery Outcome: Livebirth Delivery Method: Spontaneous Vaginal Delivery-Single Presentation: Direct occiput posterior Nuchal Cord: None Anesthesia Type: Epidural Episiotomy Type: None Laceration: 1st Degree, Perineal (midline perineal, repaired with 3- Vicryl) Suture type: Vicryl Suture size: 3-0 Placenta: Intact, Spontaneous Cord: 3 Vessels Estimated Blood Loss: 200 Resuscitation Needed: No : Bulb Syringe, Stimulated, Warmed, [place] Used Score 1 min: 8 Score 5 min: 9 Second Stage Interventions: Reports: Pushing Effectively, Pushing, Stirrups/Leg Supports Delivery Comments (Free Text/Narrative):: Stage I: Jocelyn Winkler was admitted for elective induction of labor. On admission her cervix was dilated to 1 cm. She was GBS negative. She was started on Pitocin for augmentation of labor. She had artificial rupture membranes with clear fluid. She was given an epidural for anesthesia. She progressed to complete and pushing. Stage II: On 06/03/2019 she had a normal vaginal delivery of a live female at 22:13. Apgars of 8 & 9. Weight of 2890 g (6 lbs 5.9 oz). Length of 19.5 inches. There was no nuchal cord. was delivered in direct OP position. The cord was doubly clamped and cut by father of the infant. Infant was placed on mother's abdomen. Stage III: She had a spontaneous delivery of an intact placenta in Adriana presentation. Three vessel cord. She was given pitocin and fundal massage. She had a first-degree midline perineal laceration that was repaired with 3-0 Vicryl.. Mom and baby were stable to recovery. EBL of 200 mL. Brief History: - Delivery Note. Labor: Augmented by ARM, Augmented by Oxytocin , Induced by Oxytocin. Delivery Outcome: Livebirth. Delivery Method: Spontaneous Vaginal Delivery-Single. Presentation: Direct occiput posterior. Nuchal Cord: None. Anesthesia Type: Epidural. Episiotomy Type: None. Laceration: 1st Degree, Perineal (midline perineal, repaired with 3- Vicryl). Suture type: Vicryl. Suture size: 3-0. Placenta: Intact, Spontaneous. Cord: 3 Vessels. Estimated Blood Loss: 200. Resuscitation Needed : No. : Bulb Syringe, Stimulated, Warmed, [place] Used. Score 1 min: 8. Score 5 min: 9. Second Stage Interventions: Reports: Pushing Effectively, Pushing, Stirrups/Leg Supports. Delivery Comments (Free Text/ Narrative):: Stage I: Jocelyn Winkler was admitted for elective induction of labor. On admission her cervix was dilated to 1 cm. She was GBS negative. She was started on Pitocin for augmentation of labor. She had artificial rupture membranes with clear fluid. She was given an epidural for anesthesia. She progressed to complete and pushing. Stage II: On 06/03/2019 she had a normal vaginal delivery of a live female at 22:13. Apgars of 8 & 9. Weight of 2890 g (6 lbs 5.9 oz). Length of 19.5 inches. There was no nuchal cord. was delivered in direct OP position. The cord was doubly clamped and cut by father of the . Infant was placed on mother's abdomen. Stage III: She had a spontaneous delivery of an intact placenta in Adriana presentation. Three vessel cord. She was given pitocin and fundal massage. She had a first-degree midline perineal laceration that was repaired with 3-0 Vicryl.. Mom and baby were stable to recovery. EBL of 200 mL. Diagnosis: Stroke: No - Discharge Data Discharge Date: 06/05/19 Discharge Disposition: Home, Self-Care 01 Condition: Good - Referral to Home Health Primary Care Physician: Yeyo Montano MD - Discharge Diagnosis/Problem(s) (1) 39 weeks gestation of SNOMED Code(s): 80309906 ICD Code: Z3A.39 - 39 WEEKS GESTATION OF Status: Acute Current Visit: Yes (2) Rh negative state in antepartum period SNOMED Code(s): 394163098 ICD Code: O26.899 - OTH RELATED CONDITIONS, UNSPECIFIED TRIMESTER; Z67.91 - UNSPECIFIED BLOOD TYPE, RH NEGATIVE Status: Acute Current Visit: Yes (3) PCOS (polycystic ovarian syndrome) SNOMED Code(s): 009276355 ICD Code: E28.2 - POLYCYSTIC OVARIAN SYNDROME Status: Acute Current Visit : Yes (4) Vaginal delivery SNOMED Code(s): 617120382 ICD Code: O80 - ENCOUNTER FOR FULL-TERM UNCOMPLICATED DELIVERY Status: Acute Current Visit: Yes (5) First degree perineal laceration during delivery SNOMED Code(s): 687550584 ICD Code: O70.0 - FIRST DEGREE PERINEAL LACERATION DURING DELIVERY Status: Acute Current Visit: Yes - Patient Summary/Data Complications: None Consults: None Hospital Course: Jocelyn Winkler was admitted for elective induction of labor. On admission her cervix was dilated to 1 cm. She was GBS negative. She was given pitocin for augmentation. She had artificial rupture of membranes with clear fluid. She was given an epidural for anesthesia. She progressed to complete and began pushing. On 06/03/2019 she had a normal vaginal delivery of a live female infant at 22:13. Apgars of 8 and 9. Weight of 2890 g (6 pounds 5.9 ounces). Her course was uneventful. Her pain was well controlled and she had minimal lochia. She was ambulating, tolerating a regular diet and voiding normally. She was breast-feeding with formula supplementation with minimal difficulty. She was afebrile and her hematocrit was 33.5 on admission. She desired to be discharged home on the morning of PPD #2. Her blood type is O- and infant has A+ blood type. Patient was given RhoGAM on 06/04/2019 prior to discharge. - Patient Instructions Diet: Regular Diet as Tolerated Activity: Apply Ice, As Tolerated Activity, Other: Nothing in the vagina for 6 weeks Driving: May Drive Today Showering/Bathing: May Shower Notify Provider of: Fever, Increased Pain, Swelling and Redness, Drainage, Nausea and/or Vomiting Other/Special Instructions: Please contact your physician's office if you have heavy vaginal bleeding enough to soak a pad in less than an hour for several hours. Monitor for any signs of an infection in the breasts with severe pain or redness of the breast. - Discharge Plan *PRESCRIPTION DRUG MONITORING PROGRAM REVIEWED*: Not Applicable *COPY OF PRESCRIPTION DRUG MONITORING REPORT IN PATIENT CARMITA: Not Applicable Home Medications: Home Meds PNV95/Ferrous Fumarate/FA [ Multivitamins] 1 tab PO DAILY 10/03/14 [ History] Acetaminophen [Tylenol] 650 mg PO Q6H PRN tablet 06/05/19 [Rx] Benzocaine/Menthol [Dermoplast Pain Relief [place]] 1 spray TOP ASDIRECTED PRN canister 06/05/19 [Rx] Docusate Sodium [Colace] 100 mg PO BID PRN cap 06/05/19 [Rx] Hydrocortisone Acetate [Anucort-HC] 25 mg RECTAL BID PRN supp 06/05/19 [Rx] Ibuprofen [Motrin] 600 mg PO Q6H PRN tablet 06/05/19 [Rx] Witch Noemi [Tucks] 1 pad TOP ASDIRECTED PRN pad 06/05/19 [Rx] Patient Handouts: , Vaginal Delivery, Care After, Care of a Perineal Tear, Secondhand Smoke Referrals: Yeyo Montano MD [Primary Care Provider] - (Follow-up in 2 weeks for routine appointment or earlier as needed.) - Discharge Summary/Plan Comment DC Time >30 min.: No - Patient Data Vitals - Most Recent: Last Vital Signs Temp 36.7 C 06/05/19 05:06 Pulse 75 06/05/19 08:28 Resp 14 06/05/19 08:28 BP 124/79 06/05/19 08:28 Pulse Ox 98 06/05/19 08:28 Weight - Most Recent: 101.423 kg I&O - Last 24 hours: Intake & Output 06/04/19 06/05/19 06/05/19 22:59 06:59 14:59 Intake Total 480 Balance 480 Lab Results - Last 24 hrs: Laboratory Results - last 24 hr 06/04/19 Range/Units 07:00 Blood Type O NEGATIVE Gel Antibody Screen Positive Screen 1 ros/5 flds - neg RhIG Candidate? Yes Rhogam Indicated Yes, baby rh pos H Med Orders - Current: Current Medications Acetaminophen (Tylenol) 650 mg PO Q6H PRN PRN Reason: mild pain or fever Last Admin: 06/04/19 23:35 Dose: 650 mg Benzocaine/Menthol (Dermoplast Pain Relief [place]) 0 gm TOP ASDIRECTED PRN PRN Reason: Perineal Comfort Measure Last Admin: 06/03/19 23:52 Dose: 1 can Docusate Sodium (Colace) 100 mg PO BID PRN PRN Reason: Constipation Last Admin: 06/04/19 12:23 Dose: 100 mg Famotidine (Pepcid) 20 mg PO BID PRN PRN Reason: Heartburn Hydrocortisone Acetate (Anucort-Hc) 25 mg RECTAL BID PRN PRN Reason: Hemorrhoid pain Oxytocin/Lactated Ringer's (Pitocin In Lr 10 Units/1,000 Ml) 10 unit in 1,000 mls @ 100 mls/hr IV TITRATE SHERYL; Protocol Ibuprofen (Motrin) 600 mg PO Q6H PRN PRN Reason: Mild pain or fever Last Admin: 06/05/19 05:04 Dose: 600 mg Magnesium Hydroxide (Milk Of Magnesia) 30 ml PO BEDTIME PRN PRN Reason: Constipation Prenat Multivit/Coil Cutter/Iron/Folic Ac ( Plus Iron) 1 each PO DAILY SHERYL Last Admin: 06/04/19 19:45 Dose: Not Given Nuria [place] (Tucks) 1 pad TOP ASDIRECTED PRN PRN Reason: Perineal Comfort Measure Last Admin: 06/03/19 23:52 Dose: 1 canister Discontinued Medications Bupivacaine HCl (Sensorcaine-Mpf 0.25%) 10 ml .ROUTE .STK-MED ONE Stop: 06/03/19 00:01 Diphenhydramine HCl (Benadryl) 25 mg IVPUSH Q6H PRN PRN Reason: pruritis Last Admin: 06/03/19 20:29 Dose: 25 mg Ephedrine Sulfate (Ephedrine Sulfate) 5 mg IVPUSH ASDIRECTED PRN PRN Reason: Hypotension Fentanyl (Sublimaze) 100 mcg EPIDUR Q3H PRN PRN Reason: Pain Last Admin: 06/03/19 13:20 Dose: 100 mcg Fentanyl/Bupivacaine HCl (Fentanyl/Bupivacaine/Ns 2 Mcg-0.125% 250 Ml) 2 mcg EPIDUR CONTINUOUS PRN PRN Reason: Pain Last Admin: 06/03/19 13:19 Dose: 2 mcg Lactated Ringer's (Ringers, Lactated) 1,000 mls @ 100 mls/hr IV ASDIRECTED SHERYL Last Admin: 06/03/19 20:29 Dose: 100 mls/hr Oxytocin/Lactated Ringer's (Pitocin In Lr 10 Units/1,000 Ml) 10 unit in 1,000 mls @ 100 mls/hr IV .CONTINUOUS SHERYL Last Admin: 06/03/19 22:57 Dose: 100 mls/hr Oxytocin/Lactated Ringer's (Pitocin In Lr 10 Units/1,000 Ml) 10 unit in 1,000 mls @ 12 mls/hr IV TITRATE SHERYL; Protocol Last Titration: 06/03/19 22:15 Dose: 500 mls/hr Nalbuphine HCl (Nubain) 10 mg IVPUSH Q2H PRN PRN Reason: Pain Ondansetron HCl (Zofran) 4 mg IVPUSH Q4H PRN PRN Reason: Nausea/Vomiting Last Admin: 06/03/19 16:43 Dose: 4 mg Sodium Chloride (Saline Flush) 10 ml FLUSH ASDIRECTED PRN PRN Reason: Keep Vein Open
== END 2019-06-05 09:50 | disposition home or self-care (01) | DRG 560 ==
LOC: JD.OB 06:41 → OBSVTOIN 22:13 → JD.OB 22:14
PROVIDERS: ADMIT Obstetrics & Gynecology; ATTEND Obstetrics & Gynecology
PROC: 10E0XZZ Delivery of Products of Conception, External Approach (ICD-10-PCS; principal; 2019-06-03)
PROC: 3E033VJ Introduction of Other Hormone into Peripheral Vein, Percutaneous Approach (ICD-10-PCS; 2019-06-03)
PROC: 10907ZC Drainage of Amniotic Fluid, Therapeutic from Products of Conception, Via Natural or Artificial Opening (ICD-10-PCS; 2019-06-03)
PROC: 0HQ9XZZ Repair Perineum Skin, External Approach (ICD-10-PCS; 2019-06-03)
DX: O99.284 Endocrine, nutritional and metabolic diseases complicating childbirth (principal); O99.214 Obesity complicating childbirth; E66.9 Obesity, unspecified; O70.0 First degree perineal laceration during delivery; E28.2 Polycystic ovarian syndrome; Z3A.39 39 weeks gestation of pregnancy; Z37.0 Single live birth
CPT/HCPCS: 01967; 36415; 51701; 51702; 59025; 59409; 85025; 86592; A9270-GY; J1200; J2405; J2590; J2790; J3010; J3490; J7120